=== PATIENT | male | born 1970 | race Caucasian/White ===

== ENCOUNTER 2019-01-10 22:45 | Observation (INO) ==
[2019-01-10] MEDS ORDERED: 0.9 % Sodium Chloride 1,000 ML IVC ONE (22:55)
--- NOTE | 2019-01-10 22:58 | Emergency Department Note ---
Disposition Clinical Impression: Hyponatremia Syncope Qualifiers: Syncope type: vasovagal syncope Qualified Code(s): R55 - Syncope and collapse Anemia Qualifiers: Anemia type: other cause Other causes of anemia: other cause, not classified Qualified Code(s): D64.89 - Other specified anemias Contusion of occipital region of scalp Qualifiers: Encounter type: initial encounter Qualified Code(s): S00.03XA - Contusion of scalp, initial encounter Disposition: Still a Patient Condition: Fair Referrals: NONE,PCP [Primary Care Provider] - Forms: ED Satisfaction Letter Time of Disposition: 00:53 General Adult HPI - General Chief complaint: ED Fall Stated complaint: Fall Time Seen by Provider: 01/10/19 22:53 Source: patient, EMS Mode of arrival: EMS Limitations: no limitations Nursing Notes Reviewed: Yes Vital Signs Reviewed: Yes - History of Present Illness HPI Narrative: 48-year-old male brought in by EMS for a fall 2 g earlier today while was just prior to arrival he felt his head on the counter but some memory going to the floor and only drinks about 8 beers a day, however he has had 15 today. Patient is takes medicine for blood pressure that new over the past 2 months denies chest pain or shortness of breath has mild headache he struck himself in the left parietal occipital area denies blurry vision weakness or numbness no dysuria no new medication changes denies any illicit drugs otherwise. No prior history of syncope. Here for further evaluation. She also reports a history of DVT 2 in the right thigh that was unprovoked per his best recollection, per EMS they said when they found him initially and they stood him up with systolic went from 190-80 became lightheaded and became liter bolus then his systolic above 100. IV normal saline was running in around his arrival. He denies vomiting or diarrhea. Patient was just been on Lasix but 2 months ago he was placed on 40 mg of lisinopril. Ever since he started taking this he started noticing that when he would stand up he would get lightheadedness lites were checked. Pain Scale: 6 - Related Data Previous Rx's Medication Instructions Recorded Ibuprofen 800 mg PO TID #30 tablet 11/29/18 Allergies Allergy/AdvReac Type Severity Reaction Status Date / Time diazepam [From Valium] AdvReac Fatigued Verified 06/08/19 13:31 lorazepam [From Ativan] AdvReac See Verified 11/29/18 13:31 Comments All systems ED: reviewed and negative except as stated. Cardiovascular: Reports: syncope Past Medical History - Past Medical History Attestation: Yes The following information was validated with the patient. Source: patient Medical history: Reports: DVT, hypertension Psychiatric history: Reports: bipolar, depression - Social History Smoking Status: Never smoker Alcohol use: Reports: heavy, recent Drug use: Reports: none Physical Exam - General Limitations: no limitations General appearance: alert, in no apparent distress - Head Head exam: normocephalic, other (Slight soft tissue swelling in the left parieto-occipital area no step-off) - Eye Eye exam: Present: normal appearance, PERRL, EOMI - ENT ENT exam: normal exam, normal oropharynx - Neck Neck exam: Present: normal inspection, full ROM - Chest Chest inspection: Present: normal inspection, symmetric chest wall rise - Respiratory Respiratory exam: Present: normal lung sounds bilaterally - Cardiovascular Cardiovascular exam: Present: regular rate, normal rhythm - Abdominal Exam Abdominal exam: Present: soft, Non-Tender - Extremities Exam Extremities exam: Present: normal inspection, full ROM, normal capillary refill - Expanded Lower Extremity Exam Neurovascular/Tendon exam: Present: normal capillary refill Gait: not tested/not observed - Back Exam Back exam: Present: normal inspection, full ROM - Neurological Exam Neurological exam: Present: alert, oriented X3, CN II-XII intact - Psychiatric Psychiatric exam: Present: normal affect, normal mood - Skin Skin exam: Present: warm, dry, intact Course - Reevaluation(s) Reevaluation #1: Patient admits to drinking 15 beers today. Patient fall might be mechanical possible syncopal his recollection is a bit fuzzy. Patient get a CT scan of the head C-spine noncontrast for both chest x-ray EKG d-dimer for the suspicion that a PE could make syncope screening labs serum ethanol level. Disposition pending. Time: 23:01 Reevaluation #2: Labs are back. Patient is anemic at 8.7 he was about 11.7 year 2 ago then 13 before that platelets within normal limits no elevated white count slightly low sodium at 129 and creatinine within normal limits. Serum ethanol 87 awaiting chest x-ray troponin and CT results. She getting liter bolus. Normal saline disposition pending Time: 00:19 Reevaluation #3: Patient's d-dimer is negative troponin negative. Patient awaiting a CT scan of his head and C-spine. Patient is signed out at 1 AM to the overnight ED attending Dr. Boubacar Rivera. We will follow results of the CT scan reevaluated patient and admit for syncope hyponatremia and anemia of unclear etiology. Patient's signout at 1 AM in stable condition. Patient currently at the CT scanner. Time: 00:51 Vital Signs Temperature 98.6 F 01/10/19 22:46 Pulse Rate 88 01/10/19 22:46 Respiratory Rate 18 01/10/19 22:46 Blood Pressure 108/68 01/10/19 22:46 O2 Sat by Pulse Oximetry 97 01/10/19 22:46 Temperature 98.6 F 01/10/19 22:46 Pulse Rate 88 01/10/19 22:46 Respiratory Rate 18 01/10/19 22:46 Blood Pressure 108/68 01/10/19 22:46 O2 Sat by Pulse Oximetry 97 01/10/19 22:46 Oxygen Delivery Oxygen Delivery Nasal Cannula Medical Decision Making - Medical Records Medical records reviewed: Yes I reviewed the patient's medical records. - Lab Data Lab results reviewed: Yes I reviewed the patient's lab results. Result diagrams: 01/10/19 23:44 01/10/19 23:44 Lab Results 01/10/19 01/10/19 01/10/19 Range/Units 23:44 23:44 23:44 WBC 6.8 (4.3-11.1) K/mcL RBC 2.65 L (4.19-5.50) M/mcL Hgb 8.7 L (12.9-16.9) g/dL Hct 25.3 L (37.5-50.1) % MCV 95.5 (83.0-100.0) fL MCH 32.8 (28.0-33.3) pg MCHC 34.4 (31.6-35.5) g/dL RDW 14.7 H (11.5-14.5) % Plt Count 186 (140-400) K/mcL MPV 8.5 L (9.4-12.4) fL Immature Gran % 1.3 (0-4) % Seg Neutrophils % 52.7 % Lymphocytes % 35.3 % Monocytes % 8.5 % Eosinophils % 1.8 % Basophils % 0.4 % Neutrophils # 3.6 (1.6-8.9) K/mcL Lymphocytes # 2.4 (0.6-4.6) K/mcL Monocytes # 0.6 (0.0-1.3) K/mcL Eosinophils # 0.1 (0.0-0.6) K/mcL Basophils # 0.0 (0.0-0.2) K/mcL D-Dimer (0-500) ng/mLFEU Sodium 129 L (136-145) mEq/L Potassium 3.7 (3.5-5.1) mEq/L Chloride 95 L (98-107) mEq/L Carbon Dioxide 24 (23-29) mEq/L BUN 20 (6-20) mg/dL Creatinine 1.26 (0.70-1.30) mg/dL Est GFR ( Amer) > 60 (> 60) Est GFR (Non-Af Amer) > 60 (> 60) BUN/Creatinine Ratio 16 (6-26) Glucose 124 H (70-105) mg/dL Calculated Osmolality 272 L (280-300) Calcium 8.5 L (8.6-10.3) mg/dL Troponin I < 0.03 (< 0.04) ng/mL Ethyl Alcohol 87 H (Less than 10) mg/dL 01/10/19 Range/Units 23:44 WBC (4.3-11.1) K/mcL RBC (4.19-5.50) M/mcL Hgb (12.9-16.9) g/dL Hct (37.5-50.1) % MCV (83.0-100.0) fL MCH (28.0-33.3) pg MCHC (31.6-35.5) g/dL RDW (11.5-14.5) % Plt Count (140-400) K/mcL MPV (9.4-12.4) fL Immature Gran % (0-4) % Seg Neutrophils % % Lymphocytes % % Monocytes % % Eosinophils % % Basophils % % Neutrophils # (1.6-8.9) K/mcL Lymphocytes # (0.6-4.6) K/mcL Monocytes # (0.0-1.3) K/mcL Eosinophils # (0.0-0.6) K/mcL Basophils # (0.0-0.2) K/mcL D-Dimer 350 (0-500) ng/mLFEU Sodium (136-145) mEq/L Potassium (3.5-5.1) mEq/L Chloride (98-107) mEq/L Carbon Dioxide (23-29) mEq/L BUN (6-20) mg/dL Creatinine (0.70-1.30) mg/dL Est GFR ( Amer) (> 60) Est GFR (Non-Af Amer) (> 60) BUN/Creatinine Ratio (6-26) Glucose (70-105) mg/dL Calculated Osmolality (280-300) Calcium (8.6-10.3) mg/dL Troponin I (< 0.04) ng/mL Ethyl Alcohol (Less than 10) mg/dL - Radiology Data Radiology results reviewed: Yes I reviewed the patient's radiology results. - EKG Data EKG #1 EKG attestation: Yes I reviewed and interpreted this EKG. EKG results narrative: 12-lead EKG interpreted without the benefit of Cardiologic geriatric nursing assistant shows sinus rhythm at 79 bpm performed. A full at 216 ms interventricular conduction delay at 123 ms perhaps right bundle-branch QT C within normal limits acute ischemic changes. No old EKG available for comparison.
[2019-01-10] MEDS ORDERED: Ketorolac 15 MG/ML VIAL IVP ONE (23:43)
[2019-01-11 00:05] LABS: Basophils % 0.4 %; Eosinophils # 0.1 K/mcL (0.0-0.6); Eosinophils % 1.8 %; Hematocrit 25.3 % (37.5-50.1); Hemoglobin 8.7 g/dL (12.9-16.9); Immature Granulocytes % 1.3 % (0-4); Lymphocytes # 2.4 K/mcL (0.6-4.6); Lymphocytes % 35.3 %; Mean Corpuscular HGB Conc 34.4 g/dL (31.6-35.5); Mean Corpuscular Hemoglobin 32.8 pg (28.0-33.3); Mean Corpuscular Volume 95.5 fL (83.0-100.0); Mean Platelet Volume 8.5 fL (9.4-12.4); Monocytes # 0.6 K/mcL (0.0-1.3); Monocytes % 8.5 %; Neutrophils # 3.6 K/mcL (1.6-8.9); Platelet Count 186 K/mcL (140-400); Red Blood Count 2.65 M/mcL (4.19-5.50); Red Cell Distribution Width 14.7 % (11.5-14.5); Segmented Neutrophils % 52.7 %; White Blood Count 6.8 K/mcL (4.3-11.1)
[2019-01-11 00:14] LABS: BUN/Creatinine Ratio 16 (6-26); Blood Urea Nitrogen 20 mg/dL (6-20); Calcium 8.5 mg/dL (8.6-10.3); Carbon Dioxide 24 mEq/L (23-29); Chloride 95 mEq/L (98-107); Glucose 124 mg/dL (70-105); Osmolality,Calculated 272 (280-300); Potassium 3.7 mEq/L (3.5-5.1); Sodium 129 mEq/L (136-145); eGFR For African Americans > 60 (> 60); eGFR For Non-African Americans > 60 (> 60)
[2019-01-11 00:15] LABS: Troponin I < 0.03 ng/mL (< 0.04)
[2019-01-11] MEDS ORDERED: Naloxone 0.4 MG/ML INJ IVP PRN (01:39)
[2019-01-11] MEDS ORDERED: *HR* LORazepam 2 MG/ML VIAL IVP PRN ×3 (01:41)
--- NOTE | 2019-01-11 01:55 | Emergency Department Note ---
Disposition Clinical Impression: Hyponatremia Syncope Qualifiers: Syncope type: vasovagal syncope Qualified Code(s): R55 - Syncope and collapse Anemia Qualifiers: Anemia type: other cause Other causes of anemia: other cause, not classified Qualified Code(s): D64.89 - Other specified anemias Contusion of occipital region of scalp Qualifiers: Encounter type: initial encounter Qualified Code(s): S00.03XA - Contusion of scalp, initial encounter Disposition: Admitted As Inpatient Condition: Fair Referrals: NONE,PCP [Primary Care Provider] - Forms: ED Satisfaction Letter Time of Disposition: 01:55 General Adult HPI - General Chief complaint: ED Fall Stated complaint: Fall Time Seen by Provider: 01/10/19 22:53 Source: patient, EMS Mode of arrival: EMS Limitations: no limitations - History of Present Illness Pain Scale: 6 - Related Data Home Medications Medication Instructions Recorded Confirmed Lisinopril [Zestril] 40 mg PO DAILY 01/11/19 01/11/19 Sertraline HCl 50 mg PO HS 01/11/19 01/11/19 hydroCHLOROthiazide 25 mg PO DAILY 01/11/19 01/11/19 [Hydrochlorothiazide] risperiDONE [Risperdal] 2 mg PO HS 01/11/19 01/11/19 Allergies Allergy/AdvReac Type Severity Reaction Status Date / Time diazepam [From Valium] AdvReac Fatigued Verified 11/29/18 13:31 lorazepam [From Ativan] AdvReac See Verified 11/29/18 13:31 Comments Cardiovascular: Reports: syncope Past Medical History - Past Medical History Medical history: Reports: DVT, hypertension Psychiatric history: Reports: bipolar, depression - Social History Smoking Status: Never smoker Alcohol use: Reports: heavy, recent Drug use: Reports: none Physical Exam - General Limitations: no limitations General appearance: alert, in no apparent distress Course Course Narrative: This patient was signed out to me at shift change from Dr. Lombardo. Please refer to his note for complete details of the history and physical examination. Patient presented with syncope. He was found to be anemic. Also mild hyponatremia. At shift change patient is awaiting results of a CT of the head and cervical spine prior to consult in the hospitalist for admission. CT of the cervical spine and brain were negative for acute abnormality. I did perform a rectal exam on the patient and sent for stool occult blood. Small amount of light-colored stool. No gross bleeding or melena. The hospitalist, Dr. Szymanski, was consulted and accepted admission of the patient. Vital Signs Temperature 98.6 F 01/10/19 22:46 Pulse Rate 88 01/10/19 22:46 Respiratory Rate 18 01/10/19 22:46 Blood Pressure 108/68 01/10/19 22:46 O2 Sat by Pulse Oximetry 97 01/10/19 22:46 Temperature 98.6 F 01/10/19 22:46 Pulse Rate 80 01/11/19 01:00 Respiratory Rate 21 01/11/19 01:00 Blood Pressure 115/62 01/11/19 01:00 O2 Sat by Pulse Oximetry 98 01/11/19 01:00 Oxygen Delivery Oxygen Delivery Nasal Cannula Medical Decision Making - Medical Records Medical records reviewed: Yes I reviewed the patient's medical records. - Lab Data Lab results reviewed: Yes I reviewed the patient's lab results. Result diagrams: 01/10/19 23:44 01/10/19 23:44 Lab Results 01/10/19 01/10/19 01/10/19 Range/Units 23:44 23:44 23:44 WBC 6.8 (4.3-11.1) K/mcL RBC 2.65 L (4.19-5.50) M/mcL Hgb 8.7 L (12.9-16.9) g/dL Hct 25.3 L (37.5-50.1) % MCV 95.5 (83.0-100.0) fL MCH 32.8 (28.0-33.3) pg MCHC 34.4 (31.6-35.5) g/dL RDW 14.7 H (11.5-14.5) % Plt Count 186 (140-400) K/mcL MPV 8.5 L (9.4-12.4) fL Immature Gran % 1.3 (0-4) % Seg Neutrophils % 52.7 % Lymphocytes % 35.3 % Monocytes % 8.5 % Eosinophils % 1.8 % Basophils % 0.4 % Neutrophils # 3.6 (1.6-8.9) K/mcL Lymphocytes # 2.4 (0.6-4.6) K/mcL Monocytes # 0.6 (0.0-1.3) K/mcL Eosinophils # 0.1 (0.0-0.6) K/mcL Basophils # 0.0 (0.0-0.2) K/mcL D-Dimer (0-500) ng/mLFEU Sodium 129 L (136-145) mEq/L Potassium 3.7 (3.5-5.1) mEq/L Chloride 95 L (98-107) mEq/L Carbon Dioxide 24 (23-29) mEq/L BUN 20 (6-20) mg/dL Creatinine 1.26 (0.70-1.30) mg/dL Est GFR ( Amer) > 60 (> 60) Est GFR (Non-Af Amer) > 60 (> 60) BUN/Creatinine Ratio 16 (6-26) Glucose 124 H (70-105) mg/dL Calculated Osmolality 272 L (280-300) Calcium 8.5 L (8.6-10.3) mg/dL Troponin I < 0.03 (< 0.04) ng/mL Ethyl Alcohol 87 H (Less than 10) mg/dL 01/10/19 Range/Units 23:44 WBC (4.3-11.1) K/mcL RBC (4.19-5.50) M/mcL Hgb (12.9-16.9) g/dL Hct (37.5-50.1) % MCV (83.0-100.0) fL MCH (28.0-33.3) pg MCHC (31.6-35.5) g/dL RDW (11.5-14.5) % Plt Count (140-400) K/mcL MPV (9.4-12.4) fL Immature Gran % (0-4) % Seg Neutrophils % % Lymphocytes % % Monocytes % % Eosinophils % % Basophils % % Neutrophils # (1.6-8.9) K/mcL Lymphocytes # (0.6-4.6) K/mcL Monocytes # (0.0-1.3) K/mcL Eosinophils # (0.0-0.6) K/mcL Basophils # (0.0-0.2) K/mcL D-Dimer 350 (0-500) ng/mLFEU Sodium (136-145) mEq/L Potassium (3.5-5.1) mEq/L Chloride (98-107) mEq/L Carbon Dioxide (23-29) mEq/L BUN (6-20) mg/dL Creatinine (0.70-1.30) mg/dL Est GFR ( Amer) (> 60) Est GFR (Non-Af Amer) (> 60) BUN/Creatinine Ratio (6-26) Glucose (70-105) mg/dL Calculated Osmolality (280-300) Calcium (8.6-10.3) mg/dL Troponin I (< 0.04) ng/mL Ethyl Alcohol (Less than 10) mg/dL - Radiology Data Radiology results reviewed: Yes I reviewed the patient's radiology results. Chest X-Ray 01/10/19 22:53 IMPRESSION: No acute abnormality D/ / Noah Holloway / Noah Holloway Interpreting Provider: Noah Holloway
[2019-01-11 02:06] LABS: Bilirubin,Urine Negative (Negative); Blood,Urine Negative (Negative); Clarity,Urine Clear (Clear); Color,Urine Yellow (Yellow); Glucose,Urine (UA) 100 mg/dL (Normal); Ketones,Urine Negative (Negative); Leukocyte Esterase,Urine Negative (Negative); Nitrite,Urine Negative (Negative); Protein,Urine Negative (Neg-Trace); Specific Gravity,Urine 1.007 (1.010-1.025); Urobilinogen,Urine Normal (Normal)
[2019-01-11 02:10] LABS: Amphetamine Screen,Urine Negative ng/mL (Cutoff=1000); Barbiturate Screen,Urine Negative ng/mL (Cutoff=200); Benzodiazepines Screen,Urine Negative ng/mL (Cutoff=200); Cannabinoid Screen,Urine Negative ng/mL (Cutoff = 50); Cocaine Screen,Urine Negative ng/mL (Cutoff= 300); Opiate Screen,Urine Negative ng/mL (Cutoff=300); Phencyclidine Screen,Urine Negative ng/mL (Cutoff=25); Sodium, Urine 35.5 mEq/L
[2019-01-11] MEDS ORDERED: 0.9 % Sodium Chloride 1,000 ML IVC SCH (02:15)
--- NOTE | 2019-01-11 02:27 | Internal Med History&Physical ---
<Cornel Fowler - Last Filed: 01/11/19 02:57> Date of Encounter: 01/11/19 Time of Encounter: 02:00 Internal Medicine - H&P: HPI Chief complaint: Syncope Admitted From: Emergency Dept Plans for Post Hospital Care: Home History of present illness: Mr. Veliz is a 48 year old male with history of hypertension, DVTs 2-3 years ago, alcohol abuse who presented to the ED with history of falls secondary to r eported syncope earlier this evening. The patient says that he had syncope twice, once the 8 PM and once 45 minutes after. He says the first one happened while he was urinating, and the second happened in the kitchen 45 minutes later and he hit his head. His that he did lose consciousness for a few seconds and woke up on the floor. He denies any confusion or visual changes. He does not know exactly what happens. He did not have any chest pain, palpitations, abnormal sensations prior to or after the fall. He does report that over the past 3-4 days he has had increasing shortness of breath, cough, sputum production and he has had some chest discomfort as well. He does say that his shortness of breath has worsened more at night recently and he's had to use his inhaler overnight to compensate. He does admit to wheezing, and has had some white sputum production. He has no other acute symptoms at this time. In the ED the patient did have an EKG that did not demonstrate any ischemic changes but did have a mildly widened QRS complex that could represent an interventricular conduction delay. He had a head CT and cervical spine CT that were essentially negative. Labs demonstrated a hemoglobin of 8.7, sodium 129, Serum creatinine 1.26 and ethyl alcohol 87. The patient will be admitted for workup of syncope. Past Med Surg Social Fam HX - Past Medical History Medical history: DVT, hypertension Psychiatric history: bipolar, depression - Past Surgical History Additional surgical history: Right knee Surgery. right foot surgery, - Social History Smoking Status: Never smoker Alcohol use: heavy, recent Drug use: none Internal Medicine - H&P: Meds Lisinopril [Zestril] 40 mg PO DAILY 01/11/19 [History] Sertraline HCl 50 mg PO HS 01/11/19 [History] hydroCHLOROthiazide [Hydrochlorothiazide] 25 mg PO DAILY 01/11/19 [History] risperiDONE [Risperdal] 2 mg PO HS 01/11/19 [History] Allergy/AdvReac Type Severity Reaction Status Date / Time diazepam [From Valium] AdvReac Fatigued Verified 11/29/18 13:31 lorazepam [From Ativan] AdvReac See Verified 11/29/18 13:31 Comments All Systems PM: A 10-system review of systems was performed and is negative for pertinent findings except as documented above in the HPI. Review of systems: Constitutional: Denies fevers, chills, weight loss, generalized fatigue Head/Neck: Denies DAVIS, neck stiffness EENT: Denies vision changes/blurriness, rhinorrhea, congestion, sore throat CVS: Admits to occasional chest pain, palpitations, PND . Pulm: Admits to worsening SOB, cough, sputum, wheezing GI: Denies abdominal pain, nausea, vomiting, diarrhea, constipation, melena, hematemasis. Admits to several episodes of hematochezia which occurred months ago : Denies dysuria, increased frequency, urgency, hematuria Heme: Denies ease of bleeding or bruising MSK: Denies joint pain, limited ROM Skin: Denies rashes, ulcers, color changes Neuro: Denies DAVIS, paresthesias, focal deficits, ataxia - Constitutional Vitals: Temp Pulse Resp BP Pulse Ox 98.6 F 80 21 115/62 98 01/10/19 22:46 01/11/19 01:00 01/11/19 01:00 01/11/19 01:00 01/11/19 01:00 Exam: Gen: Vitals noted. No acute distress. Obese man Eyes: anicteric sclerae, moist conjunctivae; no lid-lag; Pupils equal and reactive to light HENT: Atraumatic; oropharynx clear with moist mucous membranes and no mucosal ulcerations; normal hard and soft palate Neck: Trachea midline; supple, no thyromegaly or lymphadenopathy Cardiac: RRR, 2/6 systolic murmur, +S1/S2 Pulmonary: CTA bilaterally, no wheezes, rales or rhonchi, equal chest expansion Abdomen: soft, nontender, no guarding. No masses or hepatosplenomegaly MSK: ROM intact, no joint swelling noted Extremities: no BLE edema, nontender calf, no cyanosis or clubbing Skin: Normal temperature, turgor and texture; no rash, ulcers or subcutaneous nodules Neuro: moves all extremities, no focal deficits. Psych: Appropriate mood and behavior. A&Ox3 Internal Med - H&P Results - Labs CBC & Chem 7: 01/10/19 23:44 01/10/19 23:44 Labs: Short CBC 01/10/19 Range/Units 23:44 WBC 6.8 (4.3-11.1) K/mcL Hgb 8.7 L (12.9-16.9) g/dL Hct 25.3 L (37.5-50.1) % Plt Count 186 (140-400) K/mcL Neutrophils # 3.6 (1.6-8.9) K/mcL BMP 01/10/19 23:44 Sodium 129 L Potassium 3.7 Chloride 95 L Carbon Dioxide 24 BUN 20 Creatinine 1.26 Glucose 124 H Calcium 8.5 L Cardiac Enzymes 01/10/19 Range/Units 23:44 Troponin I < 0.03 (< 0.04) ng/mL Urine 01/11/19 Range/Units 01:45 Urine Color Yellow (Yellow) Urine Clarity Clear (Clear) Urine pH 6.0 (5.0-8.0) pH Units Ur Specific Walker 1.007 L (1.010-1.025) Urine Protein Negative (Neg-Trace) mg/dL Urine Glucose (UA) 100 H (Normal) mg/dL - Impressions ITS Impressions Chest X-Ray 01/10/19 22:53 IMPRESSION: No acute abnormality D/ / Noah Holloway / Noah Holloway Interpreting Provider: Noah Holloway - Assessment and Plan (1) Syncope Current Visit: Yes Status: Acute Assessment and plan: Syncope, unclear eitiology Possibly secondary to alcohol consumption and hypovolemia Patient does report recent increase in shortness of breath New murmur found on auscultation of chest Will place on cardiac monitoring Trend troponins Orthostatic vitals Echo and Carotid dopplers IVF for 1L Qualifiers: Syncope type: unspecified Qualified Code(s): R55 - Syncope and collapse (2) Fall Current Visit: Yes Status: Acute Assessment and plan: Likely secondary to syncope vs alcohol consumption vs symptomatic anemia Head CT and Cervical CT negative for acute findings PT/OT consult Qualifiers: Encounter type: initial encounter Qualified Code(s): W19.XXXA - Unspecified fall, initial encounter (3) Alcohol abuse Current Visit: Yes Status: Acute Assessment and plan: Patient drinks 8-14 beers daily per own report Denies any history of withdrawal in the past Will place on [facility] protocol Replete thiamine, folic acid (4) MIKHAIL (acute kidney injury) Current Visit: Yes Status: Acute Assessment and plan: Acute Kidney Injury, likely prerenal Patient has Serum creatinine 1.26, Baseline 0.7 Will check FEUrea as patient is on HCTZ Start fluids tonight Consider renal ultrasound if indicated (5) Anemia Current Visit: Yes Status: Acute Assessment and plan: Anemia, unknown etiology. Hgb 8.7 New, prior Hgb has been within normal range No obvious source of bleeding. FOBT negative Does appear to be macrocytic Will check Iron, B12, Folate Qualifiers: Anemia type: other cause Other causes of anemia: other cause, not classified Qualified Code(s): D64.89 - Other specified anemias (6) Hyponatremia Current Visit: Yes Status: Acute Assessment and plan: Chronic hyponatremia Appears to be related to alochol use, however also on HCTZ Will check urine electrolytes Start 0.9 NS at 100mL/hr, recheck NA in AM - Time Spent With Patient Total time spent is greater than 50% in coordination of care (as documented) at patient's floor/unit and/or counseling patient: <Rebecca Clarke Z - Last Filed: 01/11/19 07:03> Date of Encounter: 01/11/19 Internal Medicine - H&P: HPI History of present illness: Mr. Veliz is a 48 year old male All Systems PM: A 10-system review of systems was performed and is negative for pertinent findings except as documented above in the HPI. - Constitutional Vitals: Temp Pulse Resp BP Pulse Ox 97.8 F 81 18 132/76 96 01/11/19 06:59 01/11/19 06:59 01/11/19 06:59 01/11/19 06:59 01/11/19 06:59 Internal Med - H&P Results - Labs CBC & Chem 7: 01/11/19 05:50 01/11/19 05:50 Labs: Short CBC 01/10/19 01/11/19 Range/Units 23:44 05:50 WBC 6.8 6.1 (4.3-11.1) K/mcL Hgb 8.7 L 9.1 L (12.9-16.9) g/dL Hct 25.3 L 26.8 L (37.5-50.1) % Plt Count 186 181 (140-400) K/mcL Neutrophils # 3.6 3.3 (1.6-8.9) K/mcL BMP 01/10/19 01/11/19 23:44 05:50 Sodium 129 L 133 L Potassium 3.7 4.7 D Chloride 95 L 99 Carbon Dioxide 24 27 BUN 20 18 Creatinine 1.26 1.18 Glucose 124 H 123 H Calcium 8.5 L 8.8 Cardiac Enzymes 01/10/19 01/11/19 Range/Units 23:44 05:50 Troponin I < 0.03 < 0.03 (< 0.04) ng/mL Liver Function 01/11/19 Range/Units 05:50 Total Bilirubin 0.3 (0.3-1.0) mg/dL AST 13 (13-39) Units/L ALT 17 (7-52) Units/L Alkaline Phosphatase 58 (34-104) Units/L Albumin 4.0 (3.5-5.7) g/dL Urine 01/11/19 Range/Units 01:45 Urine Color Yellow (Yellow) Urine Clarity Clear (Clear) Urine pH 6.0 (5.0-8.0) pH Units Ur Specific Walker 1.007 L (1.010-1.025) Urine Protein Negative (Neg-Trace) mg/dL Urine Glucose (UA) 100 H (Normal) mg/dL - Impressions ITS Impressions Chest X-Ray 01/10/19 22:53 IMPRESSION: No acute abnormality D/ / Noah Holloway / Noah Holloway Interpreting Provider: Noah Holloway - Time Spent With Patient Total time spent is greater than 50% in coordination of care (as documented) at patient's floor/unit and/or counseling patient: - Attending Attestation I performed a history and physical examination of the patient and discussed his management with the resident. I reviewed the residents note and agree with the documented findings and plan of care.
[2019-01-11] MEDS ORDERED: Acetaminophen 325 MG TABLET PO ONE (04:35)
[2019-01-11 06:15] LABS: Basophils % 0.7 %; Eosinophils # 0.1 K/mcL (0.0-0.6); Eosinophils % 2.1 %; Hematocrit 26.8 % (37.5-50.1); Hemoglobin 9.1 g/dL (12.9-16.9); Lymphocytes # 2.2 K/mcL (0.6-4.6); Lymphocytes % 35.8 %; Mean Corpuscular Volume 94.4 fL (83.0-100.0); Mean Platelet Volume 8.5 fL (9.4-12.4); Monocytes # 0.4 K/mcL (0.0-1.3); Monocytes % 6.2 %; Neutrophils # 3.3 K/mcL (1.6-8.9); Platelet Count 181 K/mcL (140-400); Red Blood Count 2.84 M/mcL (4.19-5.50); Red Cell Distribution Width 14.7 % (11.5-14.5); Segmented Neutrophils % 54.2 %; White Blood Count 6.1 K/mcL (4.3-11.1)
[2019-01-11 06:24] LABS: Prothrombin Time 11.7 Seconds (9.4-12.1)
[2019-01-11 06:34] LABS: % Iron Saturation 20 % (20-55); Chol/HDL Ratio 5.1 (0-4.9); Iron 81 mcg/dL (65-175); Transferrin 296 mg/dL (203-362)
[2019-01-11 06:35] LABS: Alanine Aminotransferase 17 Units/L (7-52); Albumin/Globulin Ratio 1.6 (1.1-2.2); Alkaline Phosphatase 58 Units/L (34-104); Aspartate Amino Transferase 13 Units/L (13-39); BUN/Creatinine Ratio 15 (6-26); Bilirubin,Total 0.3 mg/dL (0.3-1.0); Blood Urea Nitrogen 18 mg/dL (6-20); Calcium 8.8 mg/dL (8.6-10.3); Carbon Dioxide 27 mEq/L (23-29); Chloride 99 mEq/L (98-107); Globulin 2.5 g/dL (2.4-3.5); Glucose 123 mg/dL (70-105); Magnesium 2.1 mg/dL (1.6-2.6); Osmolality,Calculated 279 (280-300); Phosphorous 3.6 mg/dL (2.7-4.5); Potassium 4.7 mEq/L (3.5-5.1); Sodium 133 mEq/L (136-145); Total Protein 6.5 g/dL (6.4-8.9); eGFR For African Americans > 60 (> 60); eGFR For Non-African Americans > 60 (> 60)
[2019-01-11 06:52] LABS: Ferritin 284 ng/mL (20-250)
[2019-01-11 06:56] LABS: Folate 5.5 ng/mL (3.0-16.0)
[2019-01-11] MEDS: Acetaminophen 325 MG TABLET PO PRN ×2 (09:01→15:41)
[2019-01-11] MEDS: Folic Acid 1 MG TABLET PO SCH (09:01)
[2019-01-11] MEDS: Vitamin B Complex/Vit C/Vit E 1 EACH TABLET PO SCH (09:01)
[2019-01-11] MEDS: Thiamine (B-1) 100 MG TABLET PO SCH (09:01)
--- NOTE | 2019-01-11 10:29 | Event Note ---
Date of Encounter: 01/11/19 Time of Encounter: 07:15 H&P reviewed. Patient with history of hypertension, alcohol abuse, and remote DVT, was admitted overnight due to 2 episodes of syncope which appeared to be orthostatic by history. He was also found to have anemia and MIKHAIL. However, FOBT is negative and there is no evidence of iron/B12/folate deficiency. Creatinine marginally improved after IV fluid. We will continue maintenance IV fluid, put him on CIWA protocol given his significant alcohol abuse, and obtain echocardiogram and carotid Doppler given his syncopal episode.
[2019-01-11] MEDS: Nicotine 21 MG PATCH.TD24 TD SCH (20:06)
[2019-01-11] MEDS ORDERED: risperiDONE 1 MG TABLET PO SCH (21:00)
[2019-01-12 06:27] LABS: Basophils % 0.7 %; Eosinophils # 0.1 K/mcL (0.0-0.6); Eosinophils % 1.9 %; Hematocrit 30.1 % (37.5-50.1); Hemoglobin 10.2 g/dL (12.9-16.9); Immature Granulocytes % 0.7 % (0-4); Lymphocytes # 1.8 K/mcL (0.6-4.6); Lymphocytes % 31.2 %; Mean Corpuscular HGB Conc 33.9 g/dL (31.6-35.5); Mean Corpuscular Hemoglobin 32.8 pg (28.0-33.3); Mean Corpuscular Volume 96.8 fL (83.0-100.0); Mean Platelet Volume 8.7 fL (9.4-12.4); Monocytes # 0.4 K/mcL (0.0-1.3); Monocytes % 6.5 %; Neutrophils # 3.4 K/mcL (1.6-8.9); Platelet Count 210 K/mcL (140-400); Red Blood Count 3.11 M/mcL (4.19-5.50); Red Cell Distribution Width 14.6 % (11.5-14.5); White Blood Count 5.8 K/mcL (4.3-11.1)
[2019-01-12 06:51] LABS: BUN/Creatinine Ratio 13 (6-26); Blood Urea Nitrogen 14 mg/dL (6-20); Calcium 9.8 mg/dL (8.6-10.3); Carbon Dioxide 27 mEq/L (23-29); Chloride 103 mEq/L (98-107); Glucose 117 mg/dL (70-105); Magnesium 2.4 mg/dL (1.6-2.6); Osmolality,Calculated 284 (280-300); Potassium 4.3 mEq/L (3.5-5.1); Sodium 136 mEq/L (136-145); eGFR For African Americans > 60 (> 60); eGFR For Non-African Americans > 60 (> 60)
[2019-01-12 07:36] VITALS: BP 126/72
[2019-01-12] MEDS: Nicotine 21 MG PATCH.TD24 TD SCH (08:37)
[2019-01-12] MEDS: Vitamin B Complex/Vit C/Vit E 1 EACH TABLET PO SCH (08:38)
[2019-01-12] MEDS: Thiamine (B-1) 100 MG TABLET PO SCH (08:38)
[2019-01-12] MEDS: Folic Acid 1 MG TABLET PO SCH (08:38)
--- NOTE | 2019-01-12 09:47 | Discharge Summary ---
- NOTES TO OUTPATIENT PROVIDER Notes to Outpatient Provider: Complete abstinence from alcohol advised. Follow- up with PCP Orders not resulted at time of discharge: Pending orders 01/10/19 22:53 ECG 12 lead ECG [ECG] Stat Date of Encounter: 01/12/19 Time of Encounter: 07:45 - Discharge Diagnosis (1) Syncope Priority: Primary Status: Acute Qualifiers: Syncope type: unspecified Qualified Code(s): R55 - Syncope and collapse (2) MIKHAIL (acute kidney injury) Priority: Secondary Status: Acute (3) Alcohol abuse Priority: Secondary Status: Acute (4) Anemia Priority: Secondary Status: Acute Qualifiers: Anemia type: other cause Other causes of anemia: other cause, not classified Qualified Code(s): D64.89 - Other specified anemias Hospital course: Mr. Veliz is a 48 year old male with history of hypertension, alcohol abuse, and remote DVT, who was admitted after 2 episodes of syncope in the setting of EtOH intoxication and MIKHAIL. Likely due to orthostatics, Echocardiogram and carotid dopplers were unremarkable. CT head + cervical spine also -ve for sequelae of traumatic injury. Incidentally, he was also found to be anemia but - ve FOBT and there was no evidence of iron/B12/folate deficiency. Spontaneously improved during his hospital stay. Likely due to transient bone marrow suppression from EtOH use. Advised to follow up with PCP with repeat blood work in 5 days time. Given his improving MIKHAIL, DANIEL-i and HCTZ was substituted with norvasc. Complete abstinence from EtOH use advised. Discharge discussed with: patient, nurse - Time Spent with Patient Total time spent providing and/or coordinating discharge services: 28 mins - Discharge Medications Prescriptions: New Cyclobenzaprine [Flexeril] 10 mg PO TID PRN #15 tablet PRN Reason: Spasms Nicotine Patch [Nicoderm] 21 mg TD DAILY #14 patch.td24 amLODIPine [Norvasc] 5 mg PO DAILY #30 tablet Continued Sertraline HCl 50 mg PO HS risperiDONE [Risperdal] 2 mg PO HS Discontinued Lisinopril [Zestril] 40 mg PO DAILY hydroCHLOROthiazide [Hydrochlorothiazide] 25 mg PO DAILY Home Medications: Sertraline HCl 50 mg PO HS 01/11/19 [History] risperiDONE [Risperdal] 2 mg PO HS 01/11/19 [History] Cyclobenzaprine [Flexeril] 10 mg PO TID PRN #15 tablet 01/12/19 [Rx] Nicotine Patch [Nicoderm] 21 mg TD DAILY #14 patch.td24 01/12/19 [Rx] amLODIPine [Norvasc] 5 mg PO DAILY #30 tablet 01/12/19 [Rx] Allergies/Adverse Reactions: Allergy/AdvReac Type Severity Reaction Status Date / Time diazepam [From Valium] AdvReac Fatigued Verified 11/29/18 13:31 lorazepam [From Ativan] AdvReac See Verified 11/29/18 13:31 Comments Date of admission: 01/11/19 02:52 Primary care physician: PCP NONE Consults: 01/11/19 01:41 Consult to Phytopathologist [CONS] Routine Reason for SW Consult: ETOH abuse 01/11/19 03:04 Consult to Occupational Therapy [CONS] Stat Comment: Evaluate, develop and implement POC Reason for Consult: fall, syncope possibly Does patient have active BEDREST order?: No Is patient medically & hemodynamically stable?: Yes Consult to Physical Therapy [CONS] Stat Comment: Evaluate, develop and implement POC Reason for Consult: fall, syncope possibly Does patient have active BEDREST order?: No Is patient medically & hemodynamically stable?: Yes - Constitutional Vitals: Temp Pulse Resp BP Pulse Ox 98.4 F 67 16 126/72 96 01/12/19 07:34 01/12/19 07:34 01/12/19 07:34 01/12/19 07:34 01/12/19 07:34 Exam: General: Alert and oriented, not in acute distress. HEENT:EOMI, pupils equal, round and reactive. Cardiovascular:Normal S1 & S2, No JVD. Pulse regular. Lungs: clear to auscultation, no wheezes/rales Abdomen:Soft, non-tender, no rigidity. Neurological:CN II-XII intact, power and sensation fully intact in all 4 limbs. No cerebellar signs, pronator drift -ve, Babinski downgoing bilaterally Skin:Normal color, no rash, no lesions. - Patient Status Disposition: Home, Self-Care Condition: Fair Overall status at discharge: patient is progressing back to baseline - Discharge Instructions Instructions: Anemia (GEN), Fall Prevention (DC), Syncope (DC) Follow Up With: NONE,PCP [Primary Care Provider] - - Diet and Activity Activity: resume usual activities as tolerated Diet: regular diet
--- NOTE | 2019-01-13 13:58 | Electrocardiograph Report ---
[facility] [employer] Test Date: 2019-01-10 Pat Name: Delmer Veliz Department: [id number] Room: 3B54 Gender: Stamp Classifier: : [id number] Requested By: Shashank Lombardo Order Number: [id number] Reading MD: Ruben Husain Measurements Intervals [place] Rate: 79 P: 44 MA: 216 QRS: 69 QRSD: 123 T: 35 QT: 386 QTc: 443 Interpretive Statements Sinus rhythm Prolonged MA interval IVCD, consider atypical RBBB Electronically Signed On 01-13-2019 13:56:58 EDT by Ruben Husain
== END 2019-01-12 10:30 | disposition home or self-care (01) ==
LOC: EMEROOARM 22:45 → 3BNU 22:45 → SUATTDRO 01-11 02:52 → 3BNU 01-11 03:30
PROVIDERS: ADMIT Internal Medicine; ATTEND Internal Medicine